=== PATIENT | female | born 1990 | race African-American/Black ===

== ENCOUNTER 2024-09-24 19:00 | Inpatient (IN) | payer OTHER ==
[2024-09-24 21:24] VITALS: BMI 30.9
[2024-09-24] MEDS ORDERED: Methylergonovine 0.2 MG/ML VIAL IM PRN (21:25)
[2024-09-24] MEDS ORDERED: hydrALAZINE 20 MG/ML VIAL SLOW IVP PRN (21:25)
[2024-09-24] MEDS ORDERED: HYDROcodone/Acetaminophen 5/325 mg Tablet PO PRN (21:25)
[2024-09-24] MEDS ORDERED: Acetaminophen 500 MG TAB PO PRN (21:25)
[2024-09-24] MEDS ORDERED: Lidocaine 1% (PF) 30 ML VIAL SC PRN (21:25)
[2024-09-24] MEDS ORDERED: Oxytocin 30 units/NS 500 ML 500 ML IV SCH ×2 (21:30)
[2024-09-24 22:34] LABS: Hematocrit 31.1 % (34.9-44.5); Hemoglobin 9.8 g/dL (12.0-15.5); Mean Corpuscular Hemoglobin 22.4 pg (27.0-33.0); Mean Corpuscular Volume 71.0 fL (81.6-98.3); Platelet Count 225 10x3/uL (150-450); Red Blood Cell (RBC) Count 4.38 10x6/uL (3.90-5.03); White Blood Cell (WBC) Count 10.57 10x3/uL (3.5-10.5)
[2024-09-24 22:36] LABS: Syphilis Antibody Index 0.08 S/CO (<1.00 Non-Reactive)
[2024-09-24 22:38] LABS: Hep B Surf Ag - L&D Non-Reactive S/CO (NonReactive)
[2024-09-25] MEDS: Oxytocin 30 units/NS 500 ML 500 ML IV SCH (06:28)
[2024-09-25] MEDS: fentaNYL/Ropivacaine Epidural 100 ML ONE (08:06)
[2024-09-25] MEDS ORDERED: Ondansetron PF 4 MG/2 ML Vial IVP PRN ×2 (08:31→14:36)
[2024-09-25] MEDS ORDERED: Acetaminophen 325 MG TAB PO PRN (08:31)
[2024-09-25] MEDS ORDERED: diphenhydrAMINE 50 MG/ML VIAL IVP PRN (08:31)
[2024-09-25] MEDS ORDERED: fentaNYL 2 mcg/Ropivacaine 0.2% Epidural 100 ML CADD EPIDURAL SCH (08:45)
[2024-09-25] MEDS ORDERED: Communication Order-Pharmacy FS SCH (08:45)
[2024-09-25] MEDS: Tranexamic Acid 1,000 MG/10 ML VIAL IVP PRN (11:10)
[2024-09-25] MEDS: Carboprost 250 MCG/ML AMP IM PRN (11:15)
[2024-09-25] MEDS: Diphenoxylate HCl/Atropine Tablet PO PRN (11:19)
[2024-09-25] MEDS: Ondansetron PF 4 MG/2 ML Vial IVP PRN (11:55)
[2024-09-25] MEDS: Meperidine HCl/PF 25 MG (1 mL) VIAL SLOW IVP SCH (14:00)
[2024-09-25] MEDS: Ibuprofen 800 MG TAB PO PRN (14:01)
[2024-09-25] MEDS ORDERED: HYDROcodone/Acetaminophen 5/325 mg Tablet PO PRN (14:36)
[2024-09-25] MEDS ORDERED: Benzocaine-Menthol 82.5 ML CAN TOP PRN (14:36)
[2024-09-25] MEDS ORDERED: diphenhydrAMINE 25 MG CAP PO PRN (14:36)
[2024-09-25] MEDS ORDERED: Bisacodyl 10 MG SUPP PR PRN (14:36)
[2024-09-25] MEDS ORDERED: Preparation H Ointment 28 GM TUBE PR PRN (14:36)
[2024-09-25] MEDS ORDERED: Milk Of Magnesia 30 ML UDCUP PO PRN (14:36)
[2024-09-25] MEDS ORDERED: Lanolin Ointment 7 GM TUBE TOP PRN (14:36)
[2024-09-25] MEDS ORDERED: Boostrix 0.5 ML (Tdap) VIAL (>/=7 yrs of age) IM ONE (14:36)
[2024-09-25] MEDS ORDERED: hydrALAZINE 20 MG/ML VIAL SLOW IVP PRN (14:36)
[2024-09-25] MEDS: Ferrous Sulfate 325 MG TAB PO SCH (16:47)
[2024-09-25] MEDS: Ibuprofen 800 MG TAB PO SCH (21:15)
[2024-09-26 12:27] VITALS: BP 108/58; TEMP 98.3
== END 2024-09-26 18:25 | disposition home or self-care (01) | DRG 807 ==
LOC: CSHLD 20:56 → CSHPP 09-25 14:22
PROVIDERS: ADMIT Family Medicine; ATTEND Family Medicine
PROC: 3E0P7VZ Introduction of Hormone into Female Reproductive, Via Natural or Artificial Opening (ICD-10-PCS; principal; 2024-09-25)
PROC: 10E0XZZ Delivery of Products of Conception, External Approach (ICD-10-PCS; 2024-09-25)
DX: O99.214 Obesity complicating childbirth (principal); Z37.0 Single live birth; Z3A.39 39 weeks gestation of pregnancy; Z79.82 Long term (current) use of aspirin; Z88.8 Allergy status to other drugs, medicaments and biological substances; O76 Abnormality in fetal heart rate and rhythm complicating labor and delivery
CPT/HCPCS: 36415; 51702; 85027; 86780; 86850; 86900; 86901; 87340; J0595; J2175; J2405; J2590; J3490